=== PATIENT | female | born 1965 | race Caucasian/White ===

== ENCOUNTER 2017-02-01 15:20 | Observation (INO) | payer BC ==
--- NOTE | ~2017-02-01 | DS ---
Unit #: [id number] #: [id number] Patient: PRISCILLA RODRIGUEZ [id number] [address] [place], [place] [address] [id number] I MR#: [id number] NAME: PRISCILLA RODRIGUEZ ROOM: 46 Age: 51 Sex: F Admission Date: 02/01/2017 : 1965 Discharge Date: 02/02/2017 Attending Physician: Cindy Dill M.D. Primary Care Physician: Damaso Price M.D. DISCHARGE SUMMARY REASON FOR ADMISSION Elevated blood sugar/uncontrolled type 2 diabetes. HISTORY OF PRESENT ILLNESS/HOSPITAL COURSE The patient is a 51-year-old female with underlying history of seizure disorder, morbid obesity, prior history of type 2 diabetes. The patient presented after she began developing acute polydipsia. She had stated that she was recently going on a diet plan. She was not feeling particularly well. She presented to the emergency room for further evaluation. She noted her blood sugar was elevated at 536. She was given appropriate emergency room treatment. She was placed on medical/surgical floor. Her blood sugars were ascertained throughout the night. She was placed on low-dose sliding scale insulin. Routine laboratory studies from this morning are otherwise within normal limits. Her BMP shows a creatinine of 0.6 at the time of discharge. Magnesium level 1.9. Blood glucose this morning is 247. Her blood sugars are no more stable. The patient is able to tolerate a diet without difficulty. She is stable for discharge home. She will be given a prescription for glimepiride 4 mg p.o. b.i.d. with breakfast and dinner, as well as Januvia 100 mg p.o. daily. She states that in the past Metformin has caused diarrhea and she refuses that particular prescription. She will follow up with her primary care physician, Dr. Price, at [facility] in approximately 7-10 days for further evaluation. FINAL DISCHARGE DIAGNOSES 1. Type 2 diabetes. 2. Seizure disorder. 3. Morbid obesity. 4. Migraine history. 5. Chronic insomnia. 6. Allergic rhinitis. 7. Osteoarthritis. FINAL DISCHARGE MEDICATIONS 1. Synthroid 75 mcg p.o. daily. 2. Amaryl 4 mg p.o. b.i.d. with meals. 3. Os-Tello plus D 1200 mg p.o. daily. 4. Aspirin 81 mg p.o. daily. 5. vitamin daily. 6. Glucosamine 2 capsules p.o. daily. Unit #: [id number] #: [id number] Patient: PRISCILLA RODRIGUEZ 7. Zyrtec 10 mg p.o. daily. 8. Remeron 15 mg p.o. at nighttime. 9. Zonegran 100 mg p.o. at nighttime. 10. Primidone 250 mg p.o. b.i.d. 11. Januvia 100 mg p.o. daily. DISCHARGE CONDITION Stable. DISPOSITION Home. Dictated by... Gisel Sneed/colby TD: 02/02/2017 13:26 JOB #: [id number] DISCHARGE SUMMARY Page 1 of 1 X Lorena Aguirre MD X DISCHARGE SUMMARY
--- NOTE | ~2017-02-01 | A ---
[facility] Nutrition Therapy DATE: 02/02/17 Patient: PRISCILLA RODRIGUEZ Physician: KERRY Address: [address] [place] [address] Room/Bed: [address] [place] [address], Zip: [place] [address] Admit Date: 02/01/17 Date of : [birth year] Height: 5 2 Weight: 272 123.8 NUTRITIONAL ASSESSMENT: REASON: PT SEEN FOR CONSULT RE: DM EDUCATION, ALSO HIGH BMI DOCUMENTATION PT IS 51 Y.O. FEMALE ADMITTED FOR UNCONTROLLED TYPE 2 DM HT: 5'2", WT: 272# (124 KG), BMI: 49.7 RD PROVIDED WRITTEN AND VERBAL CC DIET EDUCATION. RD PROVIDED LIST OF FOODS TO AVOID/LIMIT AND FOODS TO INCLUDE MORE OFTEN. RD ALSO EMPHASIZED IMPORTANCE OF MAINTAINING A CONSISTENT BALANCED MEAL PATTERN (3 MEALS AND 1-2 SNACKS). PT REPORTS ONLY CONSUMING 1-[address] EDUCATED PT ON LIMITING SUGAR-SWEETENED BEVERAGES WELL. PT DEMONSTRATED UNDERSTANDING OF THE TOPIC. PT REPORTED NO DIET QUESTIONS AT THIS TIME. EXPECT MILD COMPLIANCE WITH DIET AT HOME. RD TO REMAIN AVAILABLE. RECOMMENDATIONS: 1. ADVANCE DIET TO CC (PT CURRENTLY ON CLEAR LIQUID + CC DIET) TO PROMOTE GRADUAL WEIGHT LOSS TOWARDS HEALTHY BMI (19.0-25.0) OR +/-10%IBW 2. ENCOURAGE COMPLIANCE OF DIET ORDER 3. RE-CONSULT RD IF FURTHER DIET EDUCATION REQUESTED RD WILL F/U PER PROTOCOL Respectfully, UCHE COOPER MS, RD, LD [facility] cc: client file
--- NOTE | ~2017-02-01 | HP ---
Unit #: [id number] #: [id number] Patient: PRISCILLA RODRIGUEZ [id number] [address] [place], [place] [address] [id number] I MR#: [id number] NAME: PRISCILLA RODRIGUEZ ROOM: 82317 Age: 51 Sex: F Admission Date: 02/01/2017 : 1965 Attending Physician: Cindy Dill M.D. Primary Care Physician: Damaso Price M.D. HISTORY AND PHYSICAL CHIEF COMPLAINT Uncontrolled type 2 diabetes mellitus. HISTORY OF PRESENT ILLNESS This 51-year-old female with seizure disorder, is admitted for uncontrolled type 2 diabetes mellitus. The patient was treated for diabetes more than 10 years ago but was able to stop medications after she lost weight 10 years ago. Does note some polydipsia but she is attempting to lose weight. She had routine blood work performed by her neurologist today due to increasing migraines, was told to seek help in the emergency department for uncontrolled diabetes mellitus. In the ER, her serum glucose is 536. She was bolus with a liter of saline and her current Accu-Chek is 356. Very strong family history of diabetes. PAST MEDICAL HISTORY 1. Hypothyroidism. 2. Seizure disorder, both generalized as well as complex partial seizures preceded by ringing in the right ear, aura. 3. Cardiac workup in 2013 which included an echo with normal ejection fraction, mild TR. Negative walking stress test. 4. revealing diverticular disease August 2014. 5. x2. 6. Cholecystectomy. 7. Facial cyst removed. 8. Ganglion cyst removed from the right wrist. ALLERGIES 1. Theophylline. 2. Phenobarbital. 3. Codeine. 4. Levaquin. 5. Dilantin. HOME MEDICATIONS 1. Mysoline 250 mg b.i.d. 2. Synthroid 0.075 mg daily. 3. Calcium 1200 mg daily. 4. vitamins daily. 5. Aspirin 81 mg daily. 6. Glucosamine chondroitin two tablets daily. 7. Vitamin C 1000 mg daily. 8. Zonegran, uncertain dose. Unit #: [id number] #: [id number] Patient: PRISCILLA RODRIGUEZ SOCIAL HISTORY The patient lives with her parents. She smoked a bit in her teenage years but otherwise is a lifelong nonsmoker. Does not drink alcohol. FAMILY HISTORY Positive for multiple family members with diabetes mellitus. REVIEW OF SYSTEMS Notable for some recent polydipsia although the patient is attempting to lose weight, hypothyroidism, seizure disorder, above-mentioned surgeries. All other systems were reviewed and are negative. PHYSICAL EXAMINATION VITAL SIGNS: Temperature 98.3, pulse 98, respirations 18, blood pressure 138/48, O2 saturation 95% on room air. GENERAL: Pleasant, obese 51-year-old female currently in no acute distress. HEENT: Eyes PERRLA. Extraocular muscles are intact. Pharynx benign. NECK: Supple without adenopathy or thyromegaly. CHEST: Clear. HEART: Normal S1, S2 without S3, S4 or murmur. ABDOMEN: Bowel sounds are present. No hepatosplenomegaly, tenderness or masses. EXTREMITIES: Without edema. Pedal pulses are present. No ulcers on the feet. NEUROLOGIC: Awake, alert, oriented. Cranial nerves are intact. Equal strength throughout. DIAGNOSTIC STUDIES LABORATORY: Hematocrit 41, normal white count and platelet count. SMA-12 glucose 536, chloride 98, AST 43, ALT 52. Urinalysis positive glucose only. ASSESSMENT 1. Uncontrolled type 2 diabetes mellitus. This is a new diagnosis at this time. Patient was previously treated for diabetes over 10 years ago but was able to stop medicines after losing weight. 2. Seizure disorder. 3. Hypothyroidism. 4. Obesity. 5. Migraine headaches. PLAN 1. Metformin and Amaryl after I give some insulin tonight. Will start the oral hypoglycemics in the morning. 2. IV fluids. 3. Check hemoglobin A1c. 4. Billing Typist to see for dietary instruction. 5. auto body shop manager to see for glucometer. 6. DVT prophylaxis. Dictated by Unit #: [id number] #: [id number] Patient: JENNIFERGisel Akbar/grupo TD: 02/01/2017 21:34 JOB #: [id number] HISTORY AND PHYSICAL Page 1 of 1 X Cindy Dill MD X HISTORY AND PHYSICAL
[~2017-02-01 15:20] MED LIST: ACCUPRIL PO; ACTOS PO; ASPIRIN EC81 M1 PO; BACITRACIN30 GM TOP; BYETTA10 MCG/0.0 INJ; CALCIUM 1,2001 EACH PO; DICLOFENAC PO; GLUCOSAMINE & C1 CAP PO; GLUCOTROL PO; IBUPROFEN600 MG PO; IBUPROFEN800 MG PO; KEFLEX PO; METFORMIN PO; MOBIC PO; MYSOLINE250 M1 PO; OXAPROZIN600 MG PO; PRENATAL1 TA1 PO; PROZAC PO; SILVADENE TOP; SKELAXIN PO; SYNTHROID PO; SYNTHROID75 MCG PO; TOPAMAX PO; VIT C PO; VYTORIN 10/20 T1 TAB PO; ZOCOR PO; ZOLOFT PO; ZYRTEC PO
[2017-02-01] MEDS ORDERED: ZONISAMIDE PO/SL (15:26)
[2017-02-01 17:40] LABS: BASOPHIL% 0.7 % (0-2.5); EOSINOPHIL# 0.1 X10e3 (0-0.7); EOSINOPHIL% 1.4 % (0.0-7.0); HEMOGLOBIN 13.3 gm/dL (12.0-16.0); LYMPHOCYTE# 2.1 X10e3 (1.0-3.5); LYMPHOCYTE% 34.5 % (17.0-45.0); MEAN CELL VOLUME 92.9 FL (83-96); MEAN CORPUSCULAR HEMOGLOBIN 30.1 PG (28-34); MEAN CORPUSCULAR HGB CONC 32.4 g/dL (30-36); MEAN PLATELET VOLUME 8.6 FL (6.5-11.5); MONOCYTE# 0.3 X10e3 (0-1.0); MONOCYTE% 5.7 % (3.0-12.0); NEUTROPHIL# 3.5 X10e3 (1.5-7.1); NEUTROPHIL% 57.7 % (40-75); PLATELET COUNT 210 X10e3 (140-420); RED BLOOD COUNT 4.41 X10e (3.90-5.30); WHITE BLOOD COUNT 6.1 X10e3 (4.0-10.5)
[2017-02-01 17:41] LABS: DIFF IND NO
[2017-02-01 17:56] LABS: POC - CKMB 1.2 ng/mL (0.0-7.9); POC - TROPONIN <0.05 ng/mL (<=0.05)
[2017-02-01 17:57] LABS: URINE SOURCE CLEAN CATCH
[2017-02-01 18:06] LABS: URINE APPEARANCE CLEAR; URINE BILIRUBIN NEG (NEG); URINE BLOOD NEG (NEG); URINE COLOR YELLOW; URINE GLUCOSE >1000 MG/DL (NEG); URINE KETONE NEG (NEG); URINE LEUKOCYTE ESTERASE NEG (NEG); URINE NITRATE NEG (NEG); URINE PROTEIN NEG (NEG); URINE SPECIFIC GRAVITY 1.037 (1.003-1.035); URINE UROBILINOGEN 0.2 MG/DL (NEG)
[2017-02-01 18:06] LABS: ALBUMIN SERUM 4.3 g/dL (3.5-5.0); ALKALINE PHOSPHATASE 73 U/L (32-92); ALT (SGPT) 52 U/L (10-40); AST (SGOT) 43 U/L (10-42); BILIRUBIN,TOTAL 0.2 mg/dL (0.2-2.0); BLOOD UREA NITROGEN 16 mg/dL (9-23); BUN/CREATININE RATIO 17.77; CALCIUM SERUM 9.2 mg/dL (8.4-10.2); CARBON DIOXIDE 24 mmol/L (22-31); CHLORIDE 98 mmol/L (100-111); CREATININE SERUM 0.9 mg/dL (0.6-1.4); POTASSIUM 4.4 mmol/L (3.5-5.1); PROTEIN TOTAL SERUM 7.6 g/dL (6.0-8.3); SODIUM 133 mmol/L (135-145)
[2017-02-01 18:10] LABS: CULTURE INDICATED? NO
[2017-02-01 18:11] LABS: BILIRUBIN, DIRECT <0.1 mg/dL (0.0-0.2); BILIRUBIN,INDIRECT 0.1 mg/dL (0.0-0.9); GLUCOSE FASTING 536 mg/dL (70-110)
[2017-02-02 00:14] LABS: BUN/CREATININE RATIO 23.33; CREATININE SERUM 0.6 mg/dL (0.6-1.4); GLOM FILT RATE Estimated 104.1 mL/min (>60); POTASSIUM 3.6 mmol/L (3.5-5.1)
[2017-02-02] MEDS ORDERED: ZYRTEC10 M1 PO (00:34)
[2017-02-02] MEDS ORDERED: REMERON15 MG PO (00:51)
[2017-02-02] MEDS ORDERED: DUEXIS 800-26.1 EACH PO (00:51)
[2017-02-02 03:21] LABS: BASOPHIL# 0.1 X10e3 (0-0.3); BASOPHIL% 0.9 % (0-2.5); EOSINOPHIL# 0.1 X10e3 (0-0.7); EOSINOPHIL% 2.3 % (0.0-7.0); HEMATOCRIT 38.4 % (35.0-45.0); HEMOGLOBIN 12.6 gm/dL (12.0-16.0); LYMPHOCYTE# 2.8 X10e3 (1.0-3.5); LYMPHOCYTE% 45.6 % (17.0-45.0); MEAN CELL VOLUME 91.7 FL (83-96); MEAN CORPUSCULAR HEMOGLOBIN 30.2 PG (28-34); MEAN CORPUSCULAR HGB CONC 32.9 g/dL (30-36); MEAN PLATELET VOLUME 8.8 FL (6.5-11.5); MONOCYTE# 0.3 X10e3 (0-1.0); MONOCYTE% 5.6 % (3.0-12.0); NEUTROPHIL# 2.7 X10e3 (1.5-7.1); NEUTROPHIL% 45.6 % (40-75); PLATELET COUNT 209 X10e3 (140-420); RED BLOOD COUNT 4.18 X10e (3.90-5.30); RED CELL DISTRIBUTION WIDTH 12.7 % (11.0-15.5)
[2017-02-02 03:22] LABS: DIFF IND NO
[2017-02-02 03:43] LABS: CALCIUM SERUM 8.7 mg/dL (8.4-10.2); CREATININE SERUM 0.6 mg/dL (0.6-1.4); GLOM FILT RATE Estimated 104.1 mL/min (>60); MAGNESIUM 1.9 mg/dL (1.6-3.0); POTASSIUM 3.5 mmol/L (3.5-5.1)
[2017-02-02] MEDS ORDERED: TYL325 PO (08:48)
[2017-02-02] MEDS ORDERED: AMARYL PO (08:50)
[2017-02-02] MEDS ORDERED: JANUVIA PO (08:51)
== END 2017-02-02 15:30 | disposition home or self-care (01) | DRG 639 ==
LOC: CED 15:20 → CEDOF 20:10 → C4C 20:50 → CED 20:50 → CEDOF 23:05 → C4C 23:05
PROVIDERS: Emergency Medicine; Internal Medicine
DX: E11.65 Type 2 diabetes mellitus with hyperglycemia (principal); Z79.84 Long term (current) use of oral hypoglycemic drugs; G40.909 Epilepsy, unspecified, not intractable, without status epilepticus; E66.01 Morbid (severe) obesity due to excess calories; F51.04 Psychophysiologic insomnia; M19.90 Unspecified osteoarthritis, unspecified site; J30.9 Allergic rhinitis, unspecified; G43.909 Migraine, unspecified, not intractable, without status migrainosus; Z79.82 Long term (current) use of aspirin; Z90.49 Acquired absence of other specified parts of digestive tract; Z88.5 Allergy status to narcotic agent; Z88.8 Allergy status to other drugs, medicaments and biological substances; Z83.3 Family history of diabetes mellitus
CPT/HCPCS: 36415; 80048; 80076; 81003; 82553; 82947; 83036; 83735; 84484; 85025; 96372; 96374; 99285; G0378; J1650; J1815